=== PATIENT | female | born 1950 ===

== ENCOUNTER 2022-05-06 06:00 | Outpatient (RCR) | payer MEDICARE, MEDICAID, SELFPAY | END 2022-06-02 23:59 | disposition home or self-care (01) | LOC: MPT 06:00 | PROVIDERS: Visit Provider Physician Assistant Medical | DX: M67.952 Unspecified disorder of synovium and tendon, left thigh (principal) | CPT/HCPCS: 97110; 97140; 97162 ==

== ENCOUNTER 2022-06-03 06:00 | Outpatient (RCR) | payer MEDICARE, MEDICAID, SELFPAY | END 2022-07-03 23:59 | disposition home or self-care (01) | LOC: MPT 06:00 | PROVIDERS: Visit Provider Physician Assistant Medical | DX: M67.952 Unspecified disorder of synovium and tendon, left thigh (principal); M16.12 Unilateral primary osteoarthritis, left hip | CPT/HCPCS: 97110 ==